=== PATIENT | female | born 1975 | race Caucasian/White ===

== ENCOUNTER → 2019-08-25 | Outpatient (CLI) | payer OTHER ==
[~2019-08-25] MED LIST: GADOTERATE 10 MMOL/20 ML SYR ONE
== END | disposition home or self-care (01) ==
LOC: CFH 09:08
PROVIDERS: ATTEND Internal Medicine Endocrinology, Diabetes & Metabolism
DX: N64.89 Other specified disorders of breast (principal)
CPT/HCPCS: 77049; A9575; C8908